=== PATIENT | female | born 1940 | race Caucasian/White ===

== ENCOUNTER → 2017-08-12 | Outpatient (CLI) | payer OTHER ==
[2017-08-14 13:16] LABS: HPV Genotype 16 Not Detected (NOTDET); HPV Genotype 18 Not Detected (NOTDET)
[2017-08-20 07:35] LABS: HPV High Risk Other Not Detected (NOTDET)
[2017-08-20 09:44] LABS: Source CERVIX
== END | disposition home or self-care (01) ==
LOC: LAB SHORT 15:52 → OLS 15:52
PROVIDERS: Nurse Practitioner Women's Health
DX: Z12.4 Encounter for screening for malignant neoplasm of cervix (principal)
CPT/HCPCS: 87624; G0123

== ENCOUNTER 2017-12-26 06:09 | Day surgery (SDC) | payer OTHER ==
[~2017-12-26] VITALS: Ht 160 cm; Wt 55.0 kg
[~2017-12-26 06:09] MED LIST: ATOR10 PO; Aspirin EC81 MG PO; CHOL10002 PO; ESCI10 PO; Estrogel93 GM VAG; GLUCOSAMINE DA1 EACH PO; MAGNESIUM250 MG PO; Multivitamin1 EAC1 PO; NAPR220 PO; RALO60 PO; Stool Softener100 MG PO
== END 2017-12-26 09:19 | disposition home or self-care (01) ==
LOC: ORSCSDS 06:09
PROVIDERS: Podiatrist Foot & Ankle Surgery
PROC: 0SGP04Z Fusion of Right Toe Phalangeal Joint with Internal Fixation Device, Open Approach (ICD-10-PCS; principal; 2017-12-26 07:00)
PROC: 0QSN04Z Reposition Right Metatarsal with Internal Fixation Device, Open Approach (ICD-10-PCS; principal; 2017-12-26 07:00)
PROC: 0QSQ04Z Reposition Right Toe Phalanx with Internal Fixation Device, Open Approach (ICD-10-PCS; principal; 2017-12-26 07:00)
DX: M20.11 Hallux valgus (acquired), right foot (principal); M20.41 Other hammer toe(s) (acquired), right foot; K21.9 Gastro-esophageal reflux disease without esophagitis; Z79.82 Long term (current) use of aspirin; Z79.899 Other long term (current) drug therapy
CPT/HCPCS: C1713; C1769; J0690; J1100; J2250; J2405; J3010; J7120

== ENCOUNTER 2018-01-09 12:45 | Day surgery (SDC) | payer OTHER ==
[~2018-01-09] VITALS: Ht 162.6 cm; Wt 54.4 kg
== END 2018-01-09 16:41 | disposition home or self-care (01) ==
LOC: ORSCSDS 12:45
PROVIDERS: Podiatrist Foot & Ankle Surgery
PROC: 0QPN04Z Removal of Internal Fixation Device from Right Metatarsal, Open Approach (ICD-10-PCS; principal; 2018-01-09 14:00)
DX: T84.84XA Pain due to internal orthopedic prosthetic devices, implants and grafts, initial encounter (principal); Z96.9 Presence of functional implant, unspecified; Z79.899 Other long term (current) drug therapy
CPT/HCPCS: C1713; C1769; J0690; J1100; J2250; J2405; J3010; J7120